=== PATIENT | female | born 1975 | race Caucasian/White ===

== ENCOUNTER 2024-06-23 07:41 | Day surgery (SDC) | payer MEDICARE, OTHER ==
[2024-06-21 11:58] VITALS: BMI 27.4
[2024-06-23 08:07] VITALS: RESP 16; TEMP 96.7
[2024-06-23] MEDS: LACTATED RINGERS 1,000 ML IV SCH (08:15)
[2024-06-23] MEDS: IV FLUID CONTINUATION 1,000 ML IV ONE (08:15)
[2024-06-23] MEDS ORDERED: MIDAZOLAM 2 MG/2 ML VIAL ONE (09:24)
[2024-06-23] MEDS ORDERED: LIDOCAINE 1% INJ 10MG/ML (20 ML MDV) ONE (09:24)
[2024-06-23] MEDS ORDERED: PROPOFOL 10 MG/ML 20 ML VIAL IV ONE (09:24)
[2024-06-23 10:12] VITALS: BP 121/79; PULSE 78
--- NOTE | 2024-06-23 10:30 | P.PCN ---
Date of Procedure: 06/23/24 Procedure(s) Performed: Brief history: Patient is a pleasant 49-year-old scheduled for an elective upper endoscopy as well as colonoscopy as a part of evaluation of the gastroparesis with intermittent nausea vomiting change in bowel habits and progressive weight loss of 20 pounds in the last 6 months duration Procedure performed: Esophagogastroduodenoscopy with biopsy Colonoscopy Preoperative diagnosis: Epigastric pain/intermittent nausea vomiting Change in bowel habits and progressive weight loss Anesthesia: MAC Procedure: After informed consent was obtained from the patient was brought into the endoscopy unit and IV sedation was administered by anesthesia under continuous monitoring. Initially upper endoscopy was done. The Olympus GF 160 video endoscope was inserted inserted into the mouth and esophagus intubated without any difficulty and was gradually advanced into the stomach and duodenum and carefully examined. The bulb and second part of the duodenum appeared normal. Biopsies were done from this area. Scope was withdrawn to the stomach. There was a gastritis noted in the antrum which was biopsied. Mucosa of the body, cardia and fundus appeared normal. The scope was then withdrawn into the esophagus. The GE junction was located at 40 cm to the incisors. It appeared regular with superficial erosions suggestive with LA grade B reflux esophagitis. Rest of the esophagus appeared normal. Patient tolerated the procedure well. At this time the patient continued to remain sedation. Initial digital rectal examination was normal. Olympus CF 160 video colonoscope was then inserted into the rectum and gradually advanced to the cecum without any difficulty. Careful examination was performed as the scope was gradually being withdrawn. The prep was excellent. The cecum, ascending colon, transverse colon, descending colon, sigmoid colon and rectum appeared normal. Retroflexion was performed in the rectum and no lesions were noted. Patient tolerated the procedure well. Impression: 1. Upper endoscopy revealed mild antral gastritis and LA grade B reflux eso phagitis 2. Colonoscopy was within normal limits with no evidence of colorectal Recommendations: Findings of this examination were discussed with the patient as well as family. She was advised to follow-up with the biopsy results. Continue with current medications and follow antireflux measures. Follow-up in the office in 2 to 3 weeks.
== END 2024-06-23 10:49 | disposition home or self-care (01) ==
LOC: ORWHC2ENDO 07:41
PROVIDERS: ATTEND Internal Medicine Gastroenterology
DX: K31.9 Disease of stomach and duodenum, unspecified (principal); K21.00 Gastro-esophageal reflux disease with esophagitis, without bleeding; K29.70 Gastritis, unspecified, without bleeding
CPT/HCPCS: 43239; 45378; 81025; 84703; 88305